=== PATIENT | female | born 1985 | race Caucasian/White ===

== ENCOUNTER → 2021-09-14 | Outpatient (CLI) | payer BC | LOC: KOH-I 12:59 | DX: S93.421A Sprain of deltoid ligament of right ankle, initial encounter (principal); S92.191A Other fracture of right talus, initial encounter for closed fracture; M92.61 Juvenile osteochondrosis of tarsus, right ankle | CPT/HCPCS: 73721 ==

== ENCOUNTER → 2021-10-17 | Outpatient (CLI) | payer BC | LOC: KOH-I 12:53 | DX: S92.101D Unspecified fracture of right talus, subsequent encounter for fracture with routine healing (principal) | CPT/HCPCS: 73610 ==